=== PATIENT | female | born 1960 | race Caucasian/White ===

== ENCOUNTER 2020-04-29 08:37 | Outpatient (REF) | payer OTHER, SELFPAY ==
[2020-04-29 08:56] LABS: COVID-19 Test Negative (Negative)
== END 2020-04-29 08:38 | disposition home or self-care (01) ==
LOC: HO.LAB 08:37
PROVIDERS: Visit Provider Internal Medicine
DX: Z20.828 Contact with and (suspected) exposure to other viral communicable diseases (principal)
CPT/HCPCS: 87635

== ENCOUNTER 2020-05-16 13:14 | Outpatient (REF) | payer OTHER, SELFPAY ==
[2020-05-16 13:38] LABS: COVID-19 Test Negative (Negative)
== END 2020-05-16 13:15 | disposition home or self-care (01) ==
LOC: HO.LAB 13:14
PROVIDERS: Visit Provider Internal Medicine
DX: Z20.828 Contact with and (suspected) exposure to other viral communicable diseases (principal)
CPT/HCPCS: 87635; C9803